=== PATIENT | female | born 1985 | race Hispanic/Latino ===

== ENCOUNTER 2021-12-10 10:30 | Outpatient (CLI) | payer SELFPAY ==
[2021-12-10 11:14] LABS: Hemoglobin 12.1 g/dL (12.0-15.5); Mean Corpuscular HGB CONC 32.1 g/dL (32.0-36.0); Mean Corpuscular Hemoglobin 26.2 pg (27.0-33.0); Mean Corpuscular Volume 81.8 fl (81.6-98.3); Mean Platelet Volume 10.1 fl (7.4-10.4); Platelet Count 316 10x3/uL (150-450); RBC Distribution Width 13.2 % (11.5-14.5); Red Blood Cell (RBC) Count 4.61 10x6/uL (3.90-5.03); White Blood Cell (WBC) Count 8.3 10x3/uL (3.5-10.5)
[2021-12-10 11:15] LABS: Bilirubin Neg (Negative); Blood, Urine Negative (Negative); Clarity Slightly Cloudy (Clear); Glucose, Urine (Dipstick) Normal (Negative); Ketone, Urine Negative (Negative); Leukocyte 25 (Negative); Nitrite Negative (Negative); Protein, Urine (Dipstick) Negative (Neg-Trace); Specific Gravity, Urine 1.015 (1.002-1.036); Urobilinogen Normal mg/dL (Less than 2)
[2021-12-10 11:25] LABS: Bacteria/HPF Rare-Few HPF (None Seen); RBC/HPF None Seen HPF (0-3); WBC/HPF 0-3 HPF (0-3)
[2021-12-10 11:34] LABS: PTT 27.6 sec (22.0-33.0); Prothrombin Time 10.8 sec (9.5-12.1)
[2021-12-10 11:41] LABS: Anion Gap 12 mmol/L (10-20); BUN (Urea Nitrogen) 18 mg/dL (7.0-18.7); Calc. Creatinine Clearance 0 mL/min (70-130); Carbon Dioxide 25 mmol/L (22-29); Chloride 107 mmol/L (98-107); Glucose 97 mg/dL (70-105); Potassium 4.1 mmol/L (3.5-5.1); Sodium 140 mmol/L (136-145)
[2021-12-10 17:50] LABS: SARS-CoV-2 PCR by NAA DETECTED (NotDetected)
== END 2021-12-10 10:31 | disposition home or self-care (01) ==
LOC: LABBT 10:30
PROVIDERS: ATTEND Urology
DX: U07.1 COVID-19 (principal); Z01.812 Encounter for preprocedural laboratory examination; N39.46 Mixed incontinence
CPT/HCPCS: 80048; 81001; 85027; 85610; 85730; 86850; 86900; 86901; 87086; U0003; U0005

== ENCOUNTER 2023-02-17 07:53 | Outpatient (CLI) | payer OTHER ==
[2023-02-17 09:31] LABS: Bilirubin Neg (Negative); Blood, Urine Negative (Negative); Clarity Clear (Clear); Glucose, Urine (Dipstick) Normal (Negative); Ketone, Urine Negative (Negative); Leukocyte Negative (Negative); Nitrite Negative (Negative); Protein, Urine (Dipstick) Negative (Neg-Trace); Urobilinogen Normal mg/dL (Less than 2)
[2023-02-17 09:32] LABS: Mean Corpuscular HGB CONC 31.8 g/dL (32.0-36.0); Mean Corpuscular Hemoglobin 26.4 pg (27.0-33.0); Mean Corpuscular Volume 82.9 fl (81.6-98.3); Mean Platelet Volume 10.8 fl (7.4-10.4); Platelet Count 311 10x3/uL (150-450); RBC Distribution Width 13.7 % (11.5-14.5); Red Blood Cell (RBC) Count 4.55 10x6/uL (3.90-5.03); White Blood Cell (WBC) Count 6.5 10x3/uL (3.5-10.5)
[2023-02-17 09:57] LABS: Bacteria/HPF Rare-Few HPF (None Seen); RBC/HPF 0-3 HPF (0-3); Squamous Epithelial 0-3 HPF (0-3); WBC/HPF 0-3 HPF (0-3)
[2023-02-17 10:00] LABS: BHCG - Serum Negative (NEGATIVE); PTT 29.1 sec (22.0-33.0); Pregs Control Background? CLEAR/WHITE (CLR/WHITE); Pregs Control Bar Appear? YES (CONTROL BAR); Prothrombin Time 10.7 sec (9.5-12.1)
[2023-02-17 10:04] LABS: Anion Gap 14 mmol/L (10-20); BUN (Urea Nitrogen) 13 mg/dL (7.0-18.7); Calc. Creatinine Clearance 0 mL/min (70-130); Calcium 9.2 mg/dL (7.8-10.44); Carbon Dioxide 24 mmol/L (22-29); Chloride 107 mmol/L (98-107); Estimated GFR 118; Glucose 90 mg/dL (70-105); Potassium 4.3 mmol/L (3.5-5.1); Sodium 141 mmol/L (136-145)
== END 2023-02-17 07:54 | disposition home or self-care (01) ==
LOC: LABBT 07:53
PROVIDERS: ATTEND Urology
DX: Z01.812 Encounter for preprocedural laboratory examination (principal); N39.46 Mixed incontinence
CPT/HCPCS: 80048; 81001; 84703; 85027; 85610; 85730; 87086

== ENCOUNTER 2023-02-26 08:15 | Day surgery (SDC) | payer OTHER ==
[2023-02-24 09:25] VITALS: BMI 32.2
[2023-02-26] MEDS ORDERED: Ampicillin 2 GM in Sodium Chloride 0.9% 100 ML IVPB SCH (09:00)
[2023-02-26] MEDS ORDERED: GENTAMICIN IVPB SCH (09:00)
[2023-02-26] MEDS ORDERED: SODIUM CHLORIDE 0.9% IVPB SCH (09:00)
[2023-02-26] MEDS ORDERED: Sodium Chloride 0.9% 100 ML ONE (09:34)
[2023-02-26] MEDS ORDERED: Ampicillin 2 GM VIAL ONE (09:34)
[2023-02-26] MEDS ORDERED: Acetaminophen 500 MG TAB ONE (10:04)
[2023-02-26] MEDS ORDERED: fentaNYL PF 100 MCG/2 ML SYRINGE ONE (11:20)
[2023-02-26] MEDS ORDERED: HYDROmorphone 0.5 MG/0.5 ML SYRINGE ONE (11:20)
[2023-02-26] MEDS ORDERED: Neomycin-Polymyxin 1 ML AMP ONE (11:21)
[2023-02-26] MEDS ORDERED: Bupivacaine/Epinephrine 0.25% 30 ML VIAL ONE (11:21)
[2023-02-26] MEDS ORDERED: Ketorolac Tromethamine 30 MG/ML VIAL ONE (11:59)
[2023-02-26] MEDS ORDERED: Metoclopramide HCl 10 MG/2 ML VIAL ONE (11:59)
[2023-02-26] MEDS ORDERED: Ondansetron PF 4 MG/2 ML Vial ONE (11:59)
[2023-02-26] MEDS ORDERED: Lidocaine 1% PF 5 ML VIAL ONE (11:59)
[2023-02-26] MEDS ORDERED: PROPOFOL 200 MG/20 ML VIAL ONE (11:59)
[2023-02-26] MEDS ORDERED: Dexamethasone 20 MG/5 ML VIAL ONE (11:59)
[2023-02-26] MEDS ORDERED: Ferric Subsulfate (ASTRINGYN) 8 GM VIAL ONE (12:23)
[2023-02-26] MEDS ORDERED: Clindamycin 2% Cream 40 gm Tube VAG SCH (12:45)
== END 2023-02-26 15:37 | disposition home or self-care (01) ==
LOC: SDC 08:15
PROVIDERS: ATTEND Urology
PROC: 0TSD0ZZ Reposition Urethra, Open Approach (ICD-10-PCS; principal; 2023-02-26)
DX: N39.46 Mixed incontinence (principal); S37.33XA Laceration of urethra, initial encounter
CPT/HCPCS: C1771; J0290; J1100; J1170; J1580; J1885; J2405; J2704; J2765; J3490